=== PATIENT | female | born 1965 | race African-American/Black ===

== ENCOUNTER 2022-04-14 10:49 | Outpatient (CLI) | payer BC | END 2022-04-14 10:50 | disposition home or self-care (01) | LOC: BICMAMMO 10:49 | PROVIDERS: ATTEND Family Medicine | DX: Z12.31 Encounter for screening mammogram for malignant neoplasm of breast (principal); Z80.3 Family history of malignant neoplasm of breast | CPT/HCPCS: 77063; 77067 ==

== ENCOUNTER 2023-06-23 08:00 | Outpatient (CLI) | payer BC | END 2023-06-23 08:01 | disposition home or self-care (01) | LOC: BICMAMMO 08:00 | PROVIDERS: ATTEND Family Medicine | DX: Z12.31 Encounter for screening mammogram for malignant neoplasm of breast (principal); Z80.3 Family history of malignant neoplasm of breast | CPT/HCPCS: 77063; 77067 ==

== ENCOUNTER 2024-08-01 07:32 | Outpatient (CLI) | payer BC | END 2024-08-01 07:33 | disposition home or self-care (01) | LOC: BICCT 07:32 | PROVIDERS: ATTEND Family Medicine | DX: G44.52 New daily persistent headache (NDPH) (principal); R42 Dizziness and giddiness; E04.2 Nontoxic multinodular goiter | CPT/HCPCS: 70450; 93880 ==

== ENCOUNTER 2024-08-23 13:51 | Outpatient (CLI) | payer BC | END 2024-08-23 13:52 | disposition home or self-care (01) | LOC: ULT 13:51 | PROVIDERS: ATTEND Family Medicine | DX: R93.89 Abnormal findings on diagnostic imaging of other specified body structures (principal); E04.2 Nontoxic multinodular goiter | CPT/HCPCS: 76536 ==

== ENCOUNTER 2025-09-04 14:12 | Outpatient (CLI) | payer BC | END 2025-09-04 14:13 | disposition home or self-care (01) | LOC: BICMAMMO 14:12 | PROVIDERS: ATTEND Family Medicine | DX: Z12.31 Encounter for screening mammogram for malignant neoplasm of breast (principal); Z80.3 Family history of malignant neoplasm of breast | CPT/HCPCS: 77063; 77067 ==